=== PATIENT | female | born 1960 | race African-American/Black ===

== ENCOUNTER → 2017-12-14 | Outpatient (CLI) | payer OTHER ==
[~2017-12-14] MED LIST: ATARAX,VISTARIL25 MG PO; ESCITALOPRAM OX20 MG PO; FENOFIBRATE145 M1 PO; GLIPIZIDE5 MG PO; INVOKANA100 MG PO; LANTUS 10100 UNITS/ SQ; LEVOCETIRIZINE D5 MG PO; LISINOPRIL5 MG PO; METFORMIN HCL500 M1 PO; NABUMETONE500 MG PO; ONGLYZA5 MG PO; PANTOPRAZOLE SO40 MG PO; PRAVASTATIN SOD40 MG PO; SEROQUEL XR300 MG PO; ZOFRAN4 MG PO
== END | disposition home or self-care (01) ==
LOC: RES 12-02 10:00
DX: J98.01 Acute bronchospasm (principal); J98.4 Other disorders of lung
CPT/HCPCS: 94070; 94726; 94729